=== PATIENT | male | born 1965 | race Caucasian/White ===

== ENCOUNTER 2017-08-28 11:24 | Emergency (ER) | payer MEDICAID ==
[~2017-08-28] VITALS: Ht 154.9 cm; Wt 60.3 kg
[~2017-08-28 11:24] MED LIST: GLIPIZIDE10 MG PO; LIPI10 PO; METFORMIN1000 M1 PO; MOTRIN800 MG PO; NORCO1 TA2 PO; ZES20 PO; [UNRECOGNIZED DRUG - REMARK]; [UNRECOGNIZED DRUG - REMARK]
[2017-08-28 11:54] VITALS: Ht 154.9 cm; Wt 60.3 kg
[2017-08-28 14:38] LABS: RED CELL DISTRIBUTION WIDTH 12.8 % (11.5-14.5)
[2017-08-28 14:48] LABS: BASOPHIL % 0.7 % (0-2)
[2017-08-28 14:51] LABS: PLATELET COUNT 414 x10^3mcL (130-400)
[2017-08-28 15:41] LABS: CALCIUM 9.3 mg/dL (8.5-10.1); CARBON DIOXIDE 26.2 mmol/L (21-32); CHLORIDE SERUM 98 mmol/L (98-107); CREATININE SERUM 0.8 mg/dL (0.7-1.3); GFR1 > 60 mL/min; GLUCOSE SERUM 444 mg/dL (74-106); POTASSIUM SERUM 4.5 mmol/L (3.5-5.1); SODIUM SERUM 132 mmol/L (136-145)
[2017-08-28 16:30] VITALS: BP 140/79
== END 2017-08-28 16:30 | disposition home or self-care (01) ==
LOC: ED 11:24
PROVIDERS: Emergency Medicine
DX: R31.9 Hematuria, unspecified (principal); M54.5 Low back pain; R50.9 Fever, unspecified; R30.0 Dysuria; I10 Essential (primary) hypertension; E11.9 Type 2 diabetes mellitus without complications; E78.00 Pure hypercholesterolemia, unspecified
CPT/HCPCS: 36415; 87491; 87591; J1885

== ENCOUNTER 2018-05-18 13:01 | Emergency (ER) | payer MEDICAID ==
[~2018-05-18] VITALS: Ht 165.1 cm; Wt 63.0 kg
[2018-05-18 15:49] LABS: BASOPHIL % 0.1 % (0-2); PLATELET COUNT 297 x10^3mcL (130-400); RED CELL DISTRIBUTION WIDTH 14.3 % (11.5-14.5)
[2018-05-18 15:57] LABS: CALCIUM 8.7 mg/dL (8.5-10.1); CARBON DIOXIDE 26.6 mmol/L (21-32); CHLORIDE SERUM 98 mmol/L (98-107); CREATININE SERUM 0.9 mg/dL (0.7-1.3); GFR1 > 60 mL/min; GLUCOSE SERUM 341 mg/dL (74-106); POTASSIUM SERUM 4.1 mmol/L (3.5-5.1); SODIUM SERUM 135 mmol/L (136-145)
[2018-05-18 16:02] LABS: ALBUMIN 3.5 g/dL (3.4-5.0); ALKALINE PHOSPHATASE 62 U/L (46-116); ALT/SGPT 18 U/L (16-63); AST/SGOT 10 U/L (15-37); BILIRUBIN TOTAL 0.42 mg/dL (0.20-1.00); LIPASE 333 IU/L (73-393); TOTAL PROTEIN, SERUM 7.3 g/dL (6.4-8.2)
[2018-05-18 17:07] VITALS: BP 124/86
== END 2018-05-18 17:07 | disposition home or self-care (01) ==
LOC: ED 13:01
PROVIDERS: Emergency Medicine
DX: K62.5 Hemorrhage of anus and rectum (principal); E11.65 Type 2 diabetes mellitus with hyperglycemia; I10 Essential (primary) hypertension; E78.00 Pure hypercholesterolemia, unspecified
CPT/HCPCS: 36415